=== PATIENT | female | born 1990 | race American Indian/Alaskan Native ===

== ENCOUNTER 2016-08-02 10:08 | Outpatient (CLI) | payer BC ==
--- NOTE | 2016-08-02 12:51 | Fluoroscopy Report ---
SMALL BOWEL SERIES: INDICATION: Indeterminate colitis. COMPARISON: None similar at this institution. FINDINGS: Small bowel series performed. [employer] view demonstrates nonobstructive bowel gas pattern. Moderate colonic stool/possible constipation. Serial abdominal radiographs subsequently obtained after administration of oral contrast and demonstrate normal antegrade progression with small bowel transit time of 1 hour and 15 minutes. No focal suspicious filling defect, mass, angulation or tethering. Spot radiographs demonstrate normal terminal ileum. CONCLUSION: Normal small bowel series, as described. Thank you for the opportunity to participate in this patient's care.
== END 2016-08-02 10:09 | disposition home or self-care (01) ==
LOC: FLUORO 10:08
PROVIDERS: ATTEND Internal Medicine Gastroenterology
DX: K52.3 Indeterminate colitis (principal)
CPT/HCPCS: 74250